=== PATIENT | female | born 1990 | race Hispanic/Latino ===

== ENCOUNTER 2025-06-14 08:59 | Emergency (ER) | payer SELFPAY ==
[~2025-06-14] VITALS: Ht 165.1 cm; Wt 93.0 kg
[2025-06-14 09:22] LABS: IMMATURE GRANULOCYTE ABSOLUTE 0.02 K/uL (0-1); NUCLEATED RED BLOOD CELLS 0.0 % (0.0-0.19); PLATELET COUNT (AUTO) 256 K/uL (130-400); RED BLOOD CELL COUNT(AUTO) 4.88 MIL/uL (4.00-5.50); RED CELL DISTRIBUTION WIDTH 13.0 % (11.0-15.5); WHITE BLOOD COUNT (AUTO) 5.4 K/uL (4.8-10.8)
[2025-06-14 09:25] LABS: APPEARANCE,URINE CLEAR (CLEAR); GLUCOSE, URINE (UA) NEGATIVE (NEGATIVE); LEUKOCYTE ESTERASE ,URINE 25 Leu/uL (NEGATIVE); NITRATE,URINE NEGATIVE (NEGATIVE); OCCULT BLOOD,URINE NEGATIVE (NEGATIVE)
[2025-06-14 09:31] LABS: ADD UA MICROSCOPIC YES
[2025-06-14 09:32] LABS: CREATININE 0.9 mg/dL (0.5-1.0); GLOMERULAR FILTR. RATE CALC 87.0 mL/min (>90); GLUCOSE,RANDOM 107.0 mg/dL (70-105); SODIUM SERUM 143.0 mmol/L (136-145); UREA NITROGEN, BLOOD 13.0 mg/dL (7-18)
--- NOTE | 2025-06-14 09:34 | EKG ---
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
[2025-06-14 09:40] VITALS: BP 114/68; PULSE 59; RESP 20; TEMP 98.1; O2SAT 99
[2025-06-14 09:42] LABS: ASPARTATE AMINOTRANSFERASE 25.0 U/L (10-37); CREATINE KINASE, TOTAL 49.0 U/L (21-232); HCG,QUANTITATIVE 0.0 mIU/mL (0-5); TOTAL PROTEIN, SERUM 7.9 g/dL (6.0-8.3)
[2025-06-14] MEDS: PROCHLORPERAZINE 10MG/2ML INJ IV ONE (09:46)
[2025-06-14] MEDS: 0.9%NACL 1000ML 1,000 ML IV ONE (09:47)
--- NOTE | 2025-06-14 09:55 | ERN ---
General Chief Complaint: Headache Stated Complaint: HEADACHE Time Seen by MD: 09:01 Source: patient History of Present Illness Initial Comments In his is a 34-year-old female coming in complaining of weakness in his headache. Patient states that earlier today she has been presenting with mild abdominal discomfort shortly after that she started having headaches no complaint of diarrhea or vomiting. The headache arises from bilateral shoulder regions and travels superiorly. Allergies: Coded Allergies: No Known Drug Allergies (Unverified Allergy, Unknown, 06/14/25) Past Medical History Past Medical History: No Pertinent History Medical History Other: denies pmhx Past Surgical History: Other Surgical History Other: ruht knee acl sx, umbilical hernia ROS Dictation CONSTITUTIONAL: No chills, no fever, no weakness, no diaphoresis, no malaise. HEAD/FACE: No signs of trauma. EENT: No eye pain, no blurred vision, no tearing, no double vision, no ear pain, no ear discharge, no nose pain, no nasal congestion, no throat pain, no throat swelling, no mouth pain. RESPIRATORY: No cough, no orthopnea, no SOB, no stridor, no wheezing. CARDIOVASCULAR: No chest pain, no edema, no palpitations, no syncope. GASTROINTESTINAL/ABDOMINAL: No abdominal pain, no constipation, no diarrhea, no nausea, no vomiting. GENITOURINARY: No abnormal discharge, no dysuria, no frequent urination, no hematuria. No complaints of pain in the genitals. MUSCULOSKELETAL: No back pain, no gout, no joint pain, no joint swelling, no muscle pain, no muscle stiffness, no neck pain. INTEGUMENTARY: No change in color, no change in hair/nails, no dryness, no lesion, no lumps, no rash. NEUROLOGICAL/PSYCH: No anxiety, not depressed, no emotional problem, no headache, no numbness, no pre-existing deficit, no history of seizures, no tremors, no weakness. HEMATOLOGIC/LYMPHATIC: Not anemic, no history of blood clots, no apparent bleeding, no bruising, glands not swollen. All Systems Negative, Except as Noted. Physical Exam Physical Exam Dictation VITAL SIGNS: Reviewed. GENERAL APPEARANCE: Alert, oriented x3, no acute distress, obese. HEAD AND FACE: Non-traumatic. EYES: PERRL, pink conjunctivas, eyelid no trauma, anterior chamber clear. EARS: Pinnas intact and no signs of trauma or erythema. Ear canals clear and no discharge. TMs erythema. NOSE: No discharge, no bleeding. OROPHARYNX: Mouth normal, teeth no caries, tongue pink. Pharynx erythema. Tonsils no exudates, no abscesses noted. Mucous membrane moist. NECK: Supple, non-tender, no thyromegaly, no masses, no JVD, no bruits. BREAST: Deferred. CHEST: No tenderness, no crepitus, no paradoxical movement, no retractions. LUNGS: Clear, well-ventilated, symmetric, no rales, no wheezing, no rhonchi, no stridor, good breath sounds bilaterally. HEART: Regular rate, regular rhythm, no murmur, no gallops. VASCULAR: No peripheral edema. ABDOMEN: Soft, positive bowel sounds, nondistended, no guarding, nontender, no rebound, no masses no hepatomegaly, no splenomegaly, no Duke's sign, no hernias. RECTAL: Deferred. GENITAL: Deferred. NEUROLOGICAL: Normal speech, gross motor function intact, gross sensory function intact. MUSCULOSKELETAL: Neck nontender, full range of motion, back nontender, full range of motion. EXTREMITIES: Nontender, full range of motion. SKIN: Color pink, dry, no turgor, no rash, no lacerations, no abrasions, no contusions. LYMPHATICS: Deferred. Results Laboratory and Microbiology Lab and Micro Result Laboratory Tests Test 06/14/25 09:12 06/14/25 09:14 Urine Color YELLOW (YELLOW) Urine Appearance CLEAR (CLEAR) Urine pH 6.0 (5.0-8.0) Urine Specific [place] 1.022 (1.001-1.031) Urine Protein NEGATIVE mg/dL (NEGATIVE) Urine Glucose (UA) NEGATIVE mg/dL (NEGATIVE) Urine Ketones NEGATIVE mg/dL (NEGATIVE) Urine Occult Blood NEGATIVE (NEGATIVE) Urine Nitrate NEGATIVE (NEGATIVE) Urine Bilirubin NEGATIVE mg/dL (NEGATIVE) Urine Urobilinogen 2.0 mg/dL (0.2-1.0) H Urine Leukocyte Esterase 25 Jyothi/uL (NEGATIVE) H Urine RBC 2-5 /HPF (0-1) H Urine WBC 6-10 /HPF (0-1) H Urine Squamous Epithelial Cells MOD /HPF (0-2) Urine Bacteria RARE /HPF (None Seen) Urine HCG, Qualitative NEGATIVE (NEGATIVE) White Blood Count 5.4 K/uL (4.8-10.8) Red Blood Count 4.88 MIL/uL (4.00-5.50) Hemoglobin 15.2 g/dL (12.0-16.0) Hematocrit 45.9 % (36-48) Mean Corpuscular Volume 94.1 fL (79-99) Mean Corpuscular Hemoglobin 31.1 pg (27.0-33.0) Mean Corpuscular Hemoglobin Concent 33.1 g/dL (32.0-36.0) Red Cell Distribution Width 13.0 % (11.0-15.5) Platelet Count 256 K/uL (130-400) Mean Platelet Volume 10.5 fL (7.5-10.5) Immature Granulocyte % (Auto) 0.4 % (0-1) Neutrophils (%) (Auto) 51.7 % (40.0-77.0) Lymphocytes (%) (Auto) 34.6 % (21.0-51.0) Monocytes (%) (Auto) 10.5 % (3.0-13.0) Eosinophils (%) (Auto) 2.4 % (0.0-8.0) Basophils (%) (Auto) 0.4 % (0.0-5.0) Neutrophils # (Auto) 2.8 K/uL (1.8-7.7) Lymphocytes # (Auto) 1.9 K/uL (1.0-4.8) Monocytes # (Auto) 0.6 K/uL (0.1-1.0) Eosinophils # (Auto) 0.13 K/uL (0.00-0.70) Basophils # (Auto) 0.02 K/uL (0.00-0.20) Absolute Immature Granulocyte (auto 0.02 K/uL (0-1) Nucleated Red Blood Cells 0.0 % (0.0-0.19) Sodium Level 143 mmol/L (136-145) Potassium Level 3.8 mmol/L (3.5-5.1) Chloride Level 105 mmol/L (101-111) Carbon Dioxide Level 28 mmol/L (21-32) Blood Urea Nitrogen 13 mg/dL (7-18) Creatinine 0.9 mg/dL (0.5-1.0) Glomerular Filtration Rate Calc 87 mL/min (>90) Random Glucose 107 mg/dL (70-105) H Total Calcium 9.1 mg/dL (8.5-10.1) Total Bilirubin 0.4 mg/dL (0.2-1.0) Aspartate Amino Transf (AST/SGOT) 25 U/L (10-37) Alanine Aminotransferase (ALT/SGPT) 43 U/L (12-78) Alkaline Phosphatase 71 U/L (50-136) Total Creatine Kinase 49 U/L (21-232) Troponin I High Sensitivity < 4 ng/L (4-50) L Total Protein 7.9 g/dL (6.0-8.3) Albumin 4.0 g/dL (3.5-5.0) Lipase 27 U/L (16-77) Human Chorionic Gonadotropin, Quant 0 mIU/mL (0-5) Labs Reviewed?: Yes MDM MDM: Differential diagnosis: UTI, sinusitis, dehydration, tension headache, Rationale: Tests considered and ordered secondary to shared decision making include: Previous outside records reviewed: Old ER visits. Risk of complication and/or morbidity or mortality of patient management: None Medications-Per medication reconciliation Need for hospitalization: Patient does not meet criteria for hospitalization. Need for emergency major/minor surgery: No Is a 34-year-old female coming in complaining of generalized body weakness and a headache. Upon evaluation patient did present with a urinary tract infection laboratory workup, on physical exam bilateral tympanic membrane erythema bilateral nasal turbinate swelling oropharyngeal erythema suggestive of sinusitis. Patient will be discharged in stable condition with a diagnosis of sinusitis UTI antibiotics will be provided as well as symptomatic medication. ED Course Orders Procedure Category Date Status Time Cbc With Differential LAB 06/14/25 Complete 09:05 Comprehensive LAB 06/14/25 Complete Metabolic Panel 09:05 Troponin I High LAB 06/14/25 Complete Sensitivity 09:05 Hcg,Quantitative LAB 06/14/25 Complete 09:05 ,Urine Test LAB 06/14/25 Complete 09:05 Urinalysis Profile LAB 06/14/25 Complete 09:05 12 Lead Ekg Tracing- EKG 06/14/25 Complete Technical 09:05 0.9%Nacl 1000ml (Ns PHA 06/14/25 Complete 1000ml) 09:30 Acetaminophen 325 Tab PHA 06/14/25 Complete (Tylenol 325mg Tab 09:30 Ondansetron 4mg Inj PHA 06/14/25 Complete (Zofran 4mg Inj) 09:30 Pantoprazole 40mg Inj PHA 06/14/25 Complete (Protonix 40mg Inj 09:30 Creatine Kinase, Total LAB 06/14/25 Complete 09:05 Lipase LAB 06/14/25 Complete 09:05 Prochlorperazine PHA 06/14/25 Complete 10mg/2ml Inj 10:00 Diphenhydramine Hcl PHA 06/14/25 Complete (Benadryl Inj) 10:00 Culture Urine KEM 06/14/25 In Process 10:08 Dexamethasone 4mg/Ml PHA 06/14/25 Verified 1ml Vial (Dexametha 10:30 Current Medications Medications (Trade) Dose Ordered Sig/Lemuel Route PRN Reason Start Time Stop Time Status Last Admin Dose Admin Acetaminophen (TYLenol 325MG TAB) 650 mg ONCE ONCE PO 06/14/25 09:30 06/14/25 09:31 DC 06/14/25 09:46 Diphenhydramine HCl (BENAdryl INJ) 25 mg ONCE ONCE IV 06/14/25 10:00 06/14/25 10:01 DC 06/14/25 09:46 Ondansetron HCl (zoFRAN 4MG INJ) 4 mg ONCE ONCE IVP 06/14/25 09:30 06/14/25 09:31 DC 06/14/25 09:45 Pantoprazole Sodium (PROTonix 40MG INJ) 40 mg ONCE ONCE IVP 06/14/25 09:30 06/14/25 09:31 DC 06/14/25 09:46 Prochlorperazine Edisylate (Compazine 10mg/ 2ml Inj) 10 mg ONCE ONCE IV 06/14/25 10:00 06/14/25 10:01 DC 06/14/25 09:46 Sodium Chloride 1,000 ml @ 0 mls/hr ONCE ONCE IV 06/14/25 09:30 06/14/25 09:31 DC 06/14/25 09:47 Vital Signs Date Time Temp Pulse Resp B/P (MAP) Pulse Ox O2 Delivery O2 Flow Rate FiO2 06/14/25 09:40 98.1 59 20 114/68 99 Room Air* 0 21 06/14/25 09:08 97.5 70 16 112/83 100 Room Air* 0 21 06/14/25 09:00 97.5 70 16 112/84 100 DX & DISP Disposition: Discharge Departure Impression: Primary Impression: Sinusitis Additional Impressions: UTI (urinary tract infection), Tension headache Condition: Stable Scripts Loratadine (Loratadine) 10 Mg Tablet 1 TAB PO DAILY for allergy symptoms for 30 Days, #30 TAB 0 Refills Prov: JESSICA POLO MD 06/14/25 Fluticasone Propionate (Flonase Nasal [place]) 50 Mcg/Actuation [place] 2 SPRAY NS DAILY, #16 GM 0 Refills Prov: JESSICA POLO MD 06/14/25 Amoxicillin/Potassium Clav (Amox Tr-K Clv 875-125 mg Tab) 875 Mg-125 Mg Tablet 1 TAB PO BID for 10 Days, #20 TAB 0 Refills Prov: JESSICA POLO MD 06/14/25 Diclofenac Sodium (Voltaren Arthritis Pain) 1 % Gel..gram. 5 GM TP BID for 7 Days, #1 TUBE Prov: JESSICA POLO MD 06/14/25 Additional Instructions: FOLLOW-UP WITH PRIMARY CARE PROVIDER IN 1 TO 2 DAYS. TAKE MEDICATIONS DIRECTED HERE IN THE EMERGENCY ROOM. OKAY TO CONTINUE HOME MEDICATIONS UNLESS OTHERWISE DISCUSSED DURING YOUR VISIT IN THE EMERGENCY ROOM TODAY. RETURN TO YOUR NEAREST EMERGENCY ROOM IF SYMPTOMS WORSEN OR IF THERE IS NO IMPROVEMENT. CALL 911 IF YOU NEED IMMEDIATE ASSISTANCE. TAKE TYLENOL [id number] NEEDED AND IF NO CONTRAINDICATIONS ARE PRESENT. INCREASE ORAL HYDRATION. A WOUND CULTURE OR URINE CULTURE WAS ORDERED HERE IN THE EMERGENCY ROOM DEPARTMENT PLEASE FOLLOW-UP WITH PRIMARY CARE PROVIDER AND ADVISE THEM TO GET REPORTS FROM OUR FACILITY. IF YOU HAD ANY ZAKI WRAP/SPLINTS THAT WERE APPLIED HERE, PLEASE DO NOT REMOVE THEM UNTIL YOU SEE YOUR PRIMARY CARE OR SPECIALTY. Referrals: Referrals: SELF,REFERRAL (PCP) SUSI RAMIREZ MD, JAMES T MD Time of Disposition: 10:15 JESSICA POLO MD Jun 14, 2025 09:55
[2025-06-14 09:57] LABS: HCG,QUALITATIVE URINE NEGATIVE (NEGATIVE)
[2025-06-14 10:01] LABS: SQUAMOUS EPITHELIAL CELL,UR MOD /HPF (0-2)
[2025-06-14] MEDS ORDERED: LORA10TA7 PO (10:16)
[2025-06-14] MEDS ORDERED: DICL20GE TP (10:16)
[2025-06-14] MEDS ORDERED: AMOX1TAB16 PO (10:16)
[2025-06-14] MEDS ORDERED: FLUT16H NS (10:16)
== END 2025-06-14 10:39 | disposition home or self-care (01) ==
LOC: EDH 08:59
DX: J32.9 Chronic sinusitis, unspecified (principal); G44.209 Tension-type headache, unspecified, not intractable; N39.0 Urinary tract infection, site not specified; Z79.899 Other long term (current) drug therapy
CPT/HCPCS: 99284; 96374; 96375; 96361; 82550; 84484; 80053; 84702; 83690; 85025; 87086; 81001; 81025; 36415; 93005; 96372; J1100; J1200; J7030; J0780; J2405; J2470